=== PATIENT | male | born 1955 | race Caucasian/White ===

== ENCOUNTER 2018-09-14 14:39 | Inpatient (IN) | payer BC ==
[2018-09-14 15:14] LABS: #Eosinphils 0.1 thou/uL (0.0-0.7); #Lymphocytes 1.8 thou/uL (1.20-3.40); #Monocytes 0.5 thou/uL (0.11-0.59); #Neutrophils 4.8 thou/uL (1.40-6.50); %Basophils 0.4 % (0.0-1.0); %Eosinophils 1.6 % (0.0-10.0); %Lymphocytes 24.5 % (21.0-51.0); %Monocytes 7.5 % (0.0-10.0); %Neutrophils 66.1 % (42.0-75.0); Hemoglobin 12.8 g/dL (14.0-18.0); Mean Corpuscular HGB CONC 34.4 g/dL (32.0-36.0); Mean Corpuscular Hemoglobin 30.4 pg (27.0-31.0); Mean Corpuscular Volume 88.4 fL (78.0-98.0); Mean Platelet Volume 7.5 fL (7.4-10.4); Platelet Count 241 thou/uL (130-400); RBC Distribution Width 12.6 % (11.5-14.5); Red Blood Cell (RBC) Count 4.21 mill/uL (4.70-6.10); White Blood Cell (WBC) Count 7.2 thou/uL (4.8-10.8)
[2018-09-14 15:33] LABS: ALT (SGPT) 13 U/L (8-55); AST (SGOT) 15 U/L (5-34); Albumin 4.3 g/dL (3.4-4.8); Alkaline Phosphatase 94 U/L (40-150); Anion Gap 11 mmol/L (10-20); BUN (Urea Nitrogen) 13 mg/dL (8.4-25.7); Bilirubin, Total 0.3 mg/dL (0.2-1.2); Calc. Creatinine Clearance 0 mL/min (70-130); Calcium 9.7 mg/dL (7.8-10.44); Carbon Dioxide 22 mmol/L (23-31); Chloride 106 mmol/L (98-107); Estimated GFR-MDRD Greater than 90; Globulin 3.5 g/dL (2.4-3.5); Glucose 107 mg/dL (80-115); Potassium 4.9 mmol/L (3.5-5.1); Protein, Total 7.8 g/dL (5.8-8.1); Sodium 134 mmol/L (136-145)
--- NOTE | 2018-09-14 15:35 | RAD ---
CHEST 2 VIEWS: Date: 09/14/18 HISTORY: Coughing up blood. COMPARISON: Radiograph from 2017. FINDINGS: There is an abnormal round mass-like density in the right middle/lower lobe. Old left-sided rib fract ures. Cardiac silhouette is within normal limits. IMPRESSION: Round nodule projecting over the right lower lung. Nonemergent CT of chest recommended. CODE T. CODE LN. POS: RUBY
--- NOTE | 2018-09-14 16:48 | CT ---
CHEST CT SCAN WITH IV CONTRAST: 09/14/18 HISTORY: 63-year-old male with history of coughing up bright breast blood since Michael. COMPARISON: Chest PA and lateral, 09/14/18. FINDINGS: Poorly circumscribed somewhat spiculated appearing 2.6 cm diameter mass opacity in the right middle l obe adjacent to the minor fissure. There are some minimal patchy interstitial and alveolar nodular ch anges in the right middle lobe as well. Very minute pleural based stranding in the right lung base. M inimal ground glass opacity changes in the right upper lobe, nonspecific. No mediastinal mass or [place] opathy. No pleural effusion. No pericardial effusion. IMPRESSION: 2.6 cm diameter poorly circumscribed somewhat spiculated appearing mass in the right middle lobe with some additional patchy parenchymal changes In the right middle lobe and right upper lobe, nonspecifi c, possibly some associated pneumonitis. I feel that this is most concerning for a malignancy. Consid er followup PET scan for further assessment. POS: RUBY
[2018-09-14] MEDS ORDERED: ISOVUE-370 76%-LOCM 1 ML ONE (16:50)
[2018-09-14] MEDS ORDERED: Guaifenesin DM 100-10/5 ML UDCUP PO PRN (18:31)
[2018-09-14] MEDS ORDERED: Acetaminophen 325 MG TAB PO PRN (18:31)
[2018-09-14 20:34] VITALS: BMI 40.1
--- NOTE | 2018-09-14 20:55 | HP ---
REASON FOR ADMISSION: Right lung mass, hemoptysis. HISTORY OF PRESENTING ILLNESS: The patient gives history of cough with expectoration of blood from last 3 days. No history of fever. Has some mild shortness of breath, but nothing out of the ordinary states patient. No fever. Patient states he has had prior pneumonias multiple times and has been hospitalized here for the same. He used to smoke one pack a day for the last 25 years and currently is cutting down. No history of weight loss or loss of appetite. PAST MEDICAL AND SURGICAL HISTORY: Hypertension, hypertriglyceridemia, history of pulmonary embolus 5 years back, right total knee replacement, back surgery, left forearm tendon reattachment, left rotator cuff repair, bipolar disorder. CURRENT MEDICATIONS: The patient is on lisinopril 10 mg twice daily, [place] p.r.n. for pain, Advil 800 mg twice daily, Zoloft 300 mg p.o. at bedtime, clonazepam 4 mg p.o. at bedtime, metoprolol extended release 50 mg twice daily. ALLERGIES: NAPROSYN, but he is comfortable taking Advil. PERSONAL HISTORY: Smokes one pack a day and has been doing so for the last 25 years. Drinks on social occasions. Does not abuse alcohol. Please note patient states he has been cutting down on his smoking and is currently down to 2-3 per week. FAMILY HISTORY: Mother at the age of 81 years. Father at the age of 82 years. He has had history of rectal cancer and nasal cancer as well. CODE STATUS: FULL. 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 REVIEW OF SYSTEMS: The following complete review of systems was negative, unless otherwise mentioned in the HPI or below: Constitutional: Weight loss or gain, ability to conduct usual activities. Skin: Rash, itching. Eyes: Double vision, pain. ENT/Mouth: Nose bleeding, neck stiffness, pain, tenderness. Cardiovascular: Palpitations, dyspnea on exertion, orthopnea. Respiratory: Shortness of breath, wheezing, cough, hemoptysis, fever or night sweats. Gastrointestinal: Poor appetite, abdominal pain, heartburn, nausea, vomiting, constipation, or diarrhea. Genitourinary: Urgency, frequency, dysuria, nocturia. Musculoskeletal: Pain, swelling. Neurologic/Psychiatric: Anxiety, depression. Allergy/Immunologic: Skin rash, bleeding tendency. PHYSICAL EXAMINATION: GENERAL: Patient is a 63-year-old male who is currently not in any acute distress. VITAL SIGNS: Blood pressure 176/100, pulse 70 per minute, respiratory rate 18 per minute, temperature 97.9 degrees Fahrenheit, saturating 97% on room air. NECK: Supple, no elevated JVD. EYES: Extraocular muscles intact. Pupils reacting to light. ORAL CAVITY: Mucous membranes are moist. No exudates or congestion. CARDIOVASCULAR SYSTEM: S1, S2 heard. Regular rhythm. RESPIRATORY SYSTEM: Air entry 1+ bilateral. Scattered rhonchi plus no rales. ABDOMEN: Soft, bowel sounds heard. No tenderness, rigidity or guarding. EXTREMITIES: No peripheral edema or calf tenderness. VASCULAR SYSTEM: Peripheral pulses 2+ bilateral, no ischemic ulcerations or gangrene. CENTRAL NERVOUS SYSTEM: No gross focal deficits noted. Patient is alert, awake , oriented well. PSYCHIATRIC SYSTEM: The patient's mood is euthymic. No hallucinations or delusions. LABORATORY DATA AND IMAGING DATA: White count of 7, hemoglobin and hematocrit 12 and 37, platelet count 241 with 66% neutrophils. Electrolytes are stable. Serum bicarbonate 22, BUN 13, creatinine 0.8. Liver enzymes are within normal limits. Albumin is 4.3. CT chest done shows 2.6 cm poorly circumscribed somewhat spiculated appearing mass in the right middle lobe with additional patchy parenchymal changes in the right middle lobe and right upper lobe. This is suspicious for malignancy. CLINICAL IMPRESSION AND PLAN: The patient will be admitted to medical floor for right lung mass with history of heavy smoking in the past. He also has hemoptysis. He will be placed on DuoNeb, short course of IV steroids for 24 hours and will discontinue. He will continue his home medications of Klonopin, lisinopril and Lopressor at a lower dose and sertraline. The patient will likely need either percutaneous biopsy of his lung lesion or bronchoscopic biopsy. Further procedures and plan will be per Pulmonary advice. We will continue to closely monitor him on medical floor. TAMY
[2018-09-14] MEDS: Metoprolol Tartrate 25 MG TAB PO SCH (21:14)
[2018-09-14] MEDS: clonazePAM 1 MG TAB PO SCH (21:15)
[2018-09-14] MEDS: Lisinopril 10 MG TAB PO SCH (21:15)
[2018-09-14] MEDS: Famotidine 20 MG TAB PO SCH (21:15)
[2018-09-14] MEDS: HYDROcodone/Acetaminophen 10/325 mg Tablet PO PRN (21:21)
[2018-09-14] MEDS: guaiFENesin ER 600 MG TAB PO SCH (22:59)
[2018-09-15 04:58] LABS: Anion Gap 14 mmol/L (10-20); BUN (Urea Nitrogen) 13 mg/dL (8.4-25.7); Calc. Creatinine Clearance 175 mL/min (70-130); Calcium 9.5 mg/dL (7.8-10.44); Carbon Dioxide 21 mmol/L (23-31); Chloride 105 mmol/L (98-107); Estimated GFR-MDRD Greater than 90; Glucose 148 mg/dL (80-115); Potassium 4.2 mmol/L (3.5-5.1); Sodium 136 mmol/L (136-145)
[2018-09-15 05:11] LABS: #Lymphocytes 0.7 thou/uL (1.20-3.40); #Monocytes 0.1 thou/uL (0.11-0.59); #Neutrophils 5.3 thou/uL (1.40-6.50); %Basophils 0.3 % (0.0-1.0); %Eosinophils 0.7 % (0.0-10.0); %Lymphocytes 11.5 % (21.0-51.0); %Monocytes 2.2 % (0.0-10.0); %Neutrophils 85.4 % (42.0-75.0); Hemoglobin 12.8 g/dL (14.0-18.0); Mean Corpuscular HGB CONC 32.1 g/dL (32.0-36.0); Mean Corpuscular Hemoglobin 29.4 pg (27.0-31.0); Mean Corpuscular Volume 91.5 fL (78.0-98.0); Mean Platelet Volume 7.7 fL (7.4-10.4); Platelet Count 242 thou/uL (130-400); RBC Distribution Width 12.8 % (11.5-14.5); Red Blood Cell (RBC) Count 4.36 mill/uL (4.70-6.10); White Blood Cell (WBC) Count 6.2 thou/uL (4.8-10.8)
[2018-09-15] MEDS: HYDROcodone/Acetaminophen 10/325 mg Tablet PO PRN ×4 (05:11→21:04)
[2018-09-15] MEDS: guaiFENesin ER 600 MG TAB PO SCH ×4 (05:11→23:05)
[2018-09-15] MEDS ORDERED: Enoxaparin Sodium 40 MG/0.4 ML SYRINGE SC SCH (09:00)
[2018-09-15] MEDS: Lisinopril 10 MG TAB PO SCH ×2 (09:15→21:00)
[2018-09-15] MEDS: Famotidine 20 MG TAB PO SCH ×2 (09:16→21:02)
[2018-09-15] MEDS: Metoprolol Tartrate 25 MG TAB PO SCH ×2 (09:16→21:02)
--- NOTE | 2018-09-15 09:53 | PDOC.PN ---
- Subjective Encounter Start Date: 09/15/18 Encounter Start Time: 09:45 Subjective: a bit anxious, no sob -: no further hemoptysis - Objective Resuscitation Status: Resuscitation Status FULL:Full Resuscitation MAR Reviewed: Yes Vital Signs & Weight: Vital Signs (12 hours) Temp Pulse Resp BP BP Pulse Ox 09/15/18 09:15 114/55 L 09/15/18 08:00 98.4 F 89 16 114/55 L 94 L 09/15/18 07:55 96 09/15/18 07:07 75 16 94 L 09/14/18 23:31 71 16 97 09/14/18 22:03 67 16 97 Weight Weight 296 lb Result Diagrams: 09/15/18 04:17 09/15/18 04:17 Phys Exam - Physical Examination HEENT: PERRLA, moist MMs Neck: no JVD, supple Respiratory: no wheezing, no rales Cardiovascular: RRR, no significant murmur Gastrointestinal: soft, non-tender, positive bowel sounds Musculoskeletal: no edema, pulses present Neurological: non-focal, moves all 4 limbs Psychiatric: normal affect, A&O x 3 Dx/Plan (1) Mass of middle lobe of right lung Code(s): R91.8 - OTHER NONSPECIFIC ABNORMAL FINDING OF LUNG FIELD Status: Acute (2) COPD (chronic obstructive pulmonary disease) Status: Chronic Qualifiers: COPD type: chronic bronchitis Chronic bronchitis type: unspecified Qualified Code(s): J42 - Unspecified chronic bronchitis (3) Hemoptysis Code(s): R04.2 - HEMOPTYSIS Status: Acute (4) Bipolar disorder Code(s): F31.9 - BIPOLAR DISORDER, UNSPECIFIED Status: Chronic (5) Tobacco abuse Code(s): Z72.0 - TOBACCO USE Status: Chronic (6) Hypertension Code(s): I10 - ESSENTIAL (PRIMARY) HYPERTENSION Status: Chronic Qualifiers: Hypertension type: essential hypertension Qualified Code(s): I10 - Essential (primary) hypertension (7) Morbid obesity with BMI of 40.0-44.9, adult Code(s): E66.01 - MORBID (SEVERE) OBESITY DUE TO EXCESS CALORIES; Z68.41 - BODY MASS INDEX (BMI) 40.0-44.9, ADULT Status: Chronic - Plan d/w , likely bronchoscopy in am, he will d/w patient -: dc steroids, on levaquin, may dc in am -: duonebs -: continue lopressor, lisinopril, zoloft high dose and clonazepam -: will f/u * . Review of Systems - Medications/Allergies Allergies/Adverse Reactions: Allergies Allergy/AdvReac Type Severity Reaction Status Date / Time naproxen [From Naprosyn] Allergy Verified 09/14/18 20:37 Medications: Current Medications Acetaminophen (Tylenol) 650 mg PO Q4H PRN PRN Reason: Headache/Fever/Mild Pain (1-3) Hydrocodone Bitart/Acetaminophen ([place] 10/325) 1 tab PO Q4H PRN PRN Reason: Moderate Pain (4-6) Last Admin: 09/15/18 09:20 Dose: 1 tab Albuterol/Ipratropium (Duoneb) 3 ml NEB [id number] [facility] Last Admin: 09/15/18 07:07 Dose: 3 ml Clonazepam (Klonopin) 2 mg PO HS [facility] Last Admin: 09/14/18 21:15 Dose: 2 mg Enoxaparin Sodium (Lovenox) 40 mg SC 0900 [facility] Last Admin: 09/15/18 09:16 Dose: 40 mg Famotidine (Pepcid) 20 mg PO BID [facility] Last Admin: 09/15/18 09:16 Dose: 20 mg Guaifenesin (Mucinex) 600 mg PO Q6HR [facility] Last Admin: 09/15/18 05:11 Dose: 600 mg Guaifenesin/Dextromethorphan (Robitussin Dm) 15 ml PO Q4H PRN PRN Reason: Cough Levofloxacin 500 mg/ Device 100 mls @ 100 mls/hr IVPB Q24HR [facility] Last Admin: 09/14/18 20:57 Dose: 100 mls Lisinopril (Zestril) 10 mg PO BID [facility] Last Admin: 09/15/18 09:15 Dose: 10 mg Metoprolol Tartrate (Lopressor) 25 mg PO BID [facility] Last Admin: 09/15/18 09:16 Dose: 25 mg Buprenorphine Patch 0 each TOP Q7D [facility] Sertraline HCl (Zoloft) 300 mg PO HS [facility] Last Admin: 09/14/18 21:14 Dose: 300 mg
[2018-09-15] MEDS ORDERED: ALPRAZolam 1 MG TAB PO PRN (10:12)
[2018-09-15] MEDS ORDERED: ALPRAZolam 0.5 MG TAB PO PRN (11:00)
[2018-09-15] MEDS ORDERED: BUPRENORPHINE PATCH TOP SCH (21:00)
[2018-09-15] MEDS: clonazePAM 1 MG TAB PO SCH (21:02)
--- NOTE | 2018-09-15 21:42 | CON ---
DATE OF CONSULTATION: 09/15/2018 SERVICE: Pulmonary Medicine. REASON FOR CONSULTATION: Hemoptysis. HISTORY OF PRESENT ILLNESS: The patient is a 63-year-old white male with past medical history significant for excessive tobacco abuse, and marijuana abuse when he was in his 30s. Ultimately, he has been making an attempt to quitting both these habits. He actually discontinued marijuana when he was 34 years old. Either way, he was in his usual state of health when he started having hemoptysis. This was not preceded by any infectious prodrome, fevers, chills, nausea, vomiting, cough, sputum production, or congestion in the face. His weight has been stable. He denies having any significant night sweats. He presented to the emergency department. He coughed up about 2-3 Vanessa cups full of blood. It was fresh blood initially, but then started darken up through time. He has never had an event like this occur. PAST MEDICAL HISTORY: 1. History of pulmonary embolism. 2. Hypertension. 3. Dyslipidemia. 4. Bipolar disorder. PAST SURGICAL HISTORY: 1. Left rotator cuff repair. 2. Left forearm tendon repair. 3. Back surgery. 4. Right total knee replacement. ALLERGIES: NAPROSYN. MEDICATIONS: List of his inpatient medications was reviewed. No specific updates were made at this time. FAMILY HISTORY: Noncontributory. SOCIAL HISTORY: He smokes half to a pack of cigarettes on a daily basis. He has done so for over 30 years. He had a remote history of very significant marijuana use. He denies any alcohol or illicit drugs. He has no exposure to chemicals, dust, asbestos or tuberculosis otherwise. REVIEW OF SYSTEMS: General, head, ears, eyes, nose, throat, cardiovascular, respiratory, GI, , musculoskeletal, neurologic and skin is negative except as mentioned in the HPI. PHYSICAL EXAMINATION: VITAL SIGNS: Afebrile, pulse 99, blood pressure 157/94, respirations 16, saturation 94% on room air. GENERAL: The patient is awake and alert, in no apparent distress. LUNGS: Excellent air entry is present. There is no prolonged expiratory phase or wheezing present. HEART: Normal rate, regular. ABDOMEN: Soft, nontender, nondistended. Bowel sounds are positive. MUSCULOSKELETAL: No cyanosis or clubbing. There is no pitting in the bilateral lower extremities. NEUROLOGIC: Grossly nonfocal. LABORATORY DATA: WBC 6.2, hemoglobin 12.8, platelets 242,000. Basic metabolic profile is essentially unremarkable. Liver function studies are also normal. Hemoglobin is stable. The streptococcus is growing in 1 of 2 blood cultures. Respiratory cultures negative to date. Of note, there are very few white blood cells present. IMAGIN. Chest x-ray demonstrates right mid lung zone pulmonary nodule/mass: 2. CT of the chest demonstrates right middle lobe pulmonary nodule. It has a spiculated appearance and is pressed up against the fissure between the right middle lobe, and the right lower lobe. There is a right anterior mediastinal lymph node identified. ASSESSMENT: 1. Pulmonary mass. 2. Massive hemoptysis, resolved. 3. History of pulmonary embolism. DISCUSSION AND PLAN: The patient will undergo a bronchoscopy tomorrow morning. Hopefully, we will be able to identify a lesion and takes some true biopsies of it. If not, random biopsies will be taken from the airway of interest. We will wait for the results. He does appreciate there is possibility of a false negative. If that were the case, a transcutaneous biopsy would be required. Pulmonary Critical Care will continue to follow along. 70 minutes have been devoted to this patient in various activities. I personally reviewed all imaging studies and laboratory data noted within this document. For fifty percent of this time, I was interacting with the patient at the bedside or coordinating care with the care team. For the remainder of the time I was immediately available to the patient in the hospital unit. TAMY
[2018-09-16] MEDS: guaiFENesin ER 600 MG TAB PO SCH ×2 (05:30→15:19)
[2018-09-16] MEDS ORDERED: Morphine 2 MG/ML SYRINGE SLOW IVP SCH (08:30)
[2018-09-16 08:37] VITALS: TEMP 97.2
--- NOTE | 2018-09-16 10:08 | PDOC.PN ---
- Subjective Encounter Start Date: 09/16/18 Encounter Start Time: 09:45 Subjective: no sob -: family at bedside -: says he is less anxious this morning - Objective Resuscitation Status: Resuscitation Status FULL:Full Resuscitation MAR Reviewed: Yes Vital Signs & Weight: Vital Signs (12 hours) Temp Pulse Resp BP Pulse Ox 09/16/18 08:00 97.2 F L 71 16 112/62 93 L 09/16/18 06:35 71 16 94 L 09/16/18 01:10 76 18 96 Weight Weight 296 lb I&O: 09/15/18 09/16/18 09/17/18 06:59 06:59 06:59 Intake Total 2450 Balance 2450 Result Diagrams: 09/15/18 04:17 09/15/18 04:17 Phys Exam - Physical Examination HEENT: PERRLA, moist MMs Neck: no JVD, supple Respiratory: no wheezing, no rales Cardiovascular: RRR, no significant murmur Gastrointestinal: soft, non-tender, positive bowel sounds Musculoskeletal: no edema, pulses present Neurological: non-focal, moves all 4 limbs Psychiatric: normal affect, A&O x 3 Dx/Plan (1) Mass of middle lobe of right lung Code(s): R91.8 - OTHER NONSPECIFIC ABNORMAL FINDING OF LUNG FIELD Status: Acute (2) COPD (chronic obstructive pulmonary disease) Status: Chronic Qualifiers: COPD type: chronic bronchitis Chronic bronchitis type: unspecified Qualified Code(s): J42 - Unspecified chronic bronchitis (3) Hemoptysis Code(s): R04.2 - HEMOPTYSIS Status: Acute (4) Bipolar disorder Code(s): F31.9 - BIPOLAR DISORDER, UNSPECIFIED Status: Chronic (5) Tobacco abuse Code(s): Z72.0 - TOBACCO USE Status: Chronic (6) Hypertension Code(s): I10 - ESSENTIAL (PRIMARY) HYPERTENSION Status: Chronic Qualifiers: Hypertension type: essential hypertension Qualified Code(s): I10 - Essential (primary) hypertension (7) Morbid obesity with BMI of 40.0-44.9, adult Code(s): E66.01 - MORBID (SEVERE) OBESITY DUE TO EXCESS CALORIES; Z68.41 - BODY MASS INDEX (BMI) 40.0-44.9, ADULT Status: Chronic - Plan for bronchoscopy today -: likely blood cs 1/2 strep is contamination? -: is on levaquin, nebs -: dc plan per 's adv * . Review of Systems - Medications/Allergies Allergies/Adverse Reactions: Allergies Allergy/AdvReac Type Severity Reaction Status Date / Time naproxen [From Naprosyn] Allergy Verified 09/14/18 20:37 Medications: Current Medications Acetaminophen (Tylenol) 650 mg PO Q4H PRN PRN Reason: Headache/Fever/Mild Pain (1-3) Hydrocodone Bitart/Acetaminophen ([place] 10/325) 1 tab PO Q4H PRN PRN Reason: Moderate Pain (4-6) Last Admin: 09/15/18 21:04 Dose: 1 tab Albuterol/Ipratropium (Duoneb) 3 ml NEB [id number] [facility] Last Admin: 09/16/18 06:35 Dose: 3 ml Alprazolam (Xanax) 1 mg PO QIDPRN PRN PRN Reason: Anxiety Last Admin: 09/15/18 10:55 Dose: 1 mg Clonazepam (Klonopin) 2 mg PO HS [facility] Last Admin: 09/15/18 21:02 Dose: 2 mg Famotidine (Pepcid) 20 mg PO BID [facility] Last Admin: 09/15/18 21:02 Dose: 20 mg Guaifenesin (Mucinex) 600 mg PO Q6HR [facility] Last Admin: 09/16/18 05:30 Dose: Not Given Levofloxacin 500 mg/ Device 100 mls @ 100 mls/hr IVPB Q24HR [facility] Last Admin: 09/15/18 21:00 Dose: 100 mls Lisinopril (Zestril) 10 mg PO BID [facility] Last Admin: 09/15/18 21:00 Dose: 10 mg Metoprolol Tartrate (Lopressor) 25 mg PO BID [facility] Last Admin: 09/15/18 21:02 Dose: 25 mg Morphine Sulfate (Morphine) 2 mg SLOW IVP 0830 [facility] Stop: 09/16/18 11:00 Last Admin: 09/16/18 08:42 Dose: 2 mg Buprenorphine Patch 0 each TOP Q7D [facility] Sertraline HCl (Zoloft) 300 mg PO HS [facility] Last Admin: 09/15/18 21:02 Dose: 300 mg
[2018-09-16] MEDS: Metoprolol Tartrate 25 MG TAB PO SCH (11:17)
--- NOTE | 2018-09-16 11:57 | PRG ---
DATE OF SERVICE: 09/16/2018 SERVICE: Pulmonary Medicine. INTERVAL HISTORY: The patient is doing fine from a respiratory standpoint. Denies any current fever s, chills, shortness of breath or chest discomfort. He is breathing comfortably. There have been no additional episodes of hemoptysis. PHYSICAL EXAMINATION: VITAL SIGNS: Afebrile, pulse 71, blood pressure 112/62, respirations 16, saturation 93% on room air. GENERAL: The patient is awake and alert, in no apparent distress. LUNGS: Excellent air entry. There is no prolonged expiratory phase or wheezing present. HEENT: Normocephalic, atraumatic. Sclerae are white. Conjunctivae are pink. Oral mucosa is moist without lesions. HEART: Normal rate, regular. ABDOMEN: Soft, nontender, nondistended. Bowel sounds are positive. MUSCULOSKELETAL: No cyanosis or clubbing. No pitting in the bilateral lower extremities. NEUROLOGIC: Grossly nonfocal. ASSESSMENT: 1. Pulmonary mass. 2. Massive hemoptysis, resolved. 3. History of pulmonary embolism. DISCUSSION AND PLAN: We will proceed with bronchoscopy today. After the bronchoscopy, he will be st able for transition out of the hospital. I have him follow up with me in clinic later this week, so we can discuss the results of this study and determine whether or not additional testing is warranted in the future. Pulmonary Critical Care will continue following.
[2018-09-16] MEDS ORDERED: Fentanyl 100 MCG/2 ML VIAL ONE (12:58)
[2018-09-16] MEDS ORDERED: EPINEPHrine 1 MG/10 ML Abboject SYRINGE ONE (13:10)
[2018-09-16] MEDS: HYDROcodone/Acetaminophen 10/325 mg Tablet PO PRN (15:16)
[2018-09-16] MEDS: Famotidine 20 MG TAB PO SCH (15:18)
[2018-09-16 15:19] VITALS: BP 135/76
[2018-09-16] MEDS: Lisinopril 10 MG TAB PO SCH (15:19)
--- NOTE | 2018-09-16 19:22 | OP ---
DATE OF SERVICE: 09/16/2018 SERVICE: Pulmonary Medicine. PROCEDURES: Fiberoptic bronchoscopy with: 1. Visual airway inspection. 2. Endobronchial brush from the right middle lobe. 3. Bronchoalveolar lavage from the right middle lobe. 4. Transbronchial biopsies of the right middle lobe. PREPROCEDURE DIAGNOSES: 1. Massive hemoptysis. 2. Pulmonary mass. POSTPROCEDURE DIAGNOSES: 1. Massive hemoptysis. 2. Pulmonary mass. PROCEDURE ELECTRICIAN POWERHOUSE: Navneet Weinstein MD MEDICATIONS USED: For list of medications use, please refer to anesthesia documentation. PREANESTHESIA ASSESSMENT: H and P had been performed. The patient's medications and allergies were reviewed. Informed consent was obtained after discussing risks, benefits, and rationale for performi ng the procedure as well as alternative options. DESCRIPTION OF PROCEDURE: A timeout was performed identifying correct patient and procedure with nam e and date of . A diagnostic fiberoptic bronchoscope was introduced through the existing 8.5 en dotracheal tube. The bronchoscope was advanced into the trachea where a tracheobronchial tree inspec tion was carried out with clear identification of the right upper lobe, right middle lobe, right lowe r lobe, left upper lobe, lingula, and left lower lobe. Anatomy was normal to the segmental level. T here was some dried blood coming from the right middle lobe, lateral segment. Secretions were minima l. A bronchoalveolar lavage was obtained from the lateral segment of the right middle lobe. Endobro nchial brushings, and transbronchial biopsies were obtained from the right middle lobe under fluorosc opic guidance. Hemostasis was verified and the bronchoscope was subsequently removed from the patien t. Post-procedure fluoroscopy did not demonstrate a pneumothorax. FINDINGS: 1. Secretions were minimal. 2. Dried blood was present in the lateral segment of the right lower lobe. 3. No discrete endobronchial disease was identified. SPECIMENS OBTAINED: Pathology on brush, BAL, and transbronchial biopsies. COMPLICATIONS: None. ESTIMATED BLOOD LOSS: 2 mL FLUOROSCOPY TIME: 2 minutes 31 seconds. DISPOSITION: The patient will be transitioned to the postanesthesia care unit. When he meets criter ia, he will be transitioned back to his hospital room. He is a candidate for transition home today.
--- NOTE | 2018-09-17 00:06 | DIS ---
DATE OF ADMISSION: 09/14/2018 DATE OF DISCHARGE: 09/16/2018 DISCHARGE DISPOSITION: To home. PRIMARY DISCHARGE DIAGNOSES: Lung mass, status post bronchoscopy with biopsy; hemoptysis, resolved. SECONDARY DISCHARGE DIAGNOSES: Chronic obstructive pulmonary disease, tobacco abuse, bipolar disorde r, hypertension, morbid obesity. PROCEDURES DONE DURING HOSPITALIZATION: CT chest done on the day of admission showed 2.6 cm poorly c ircumscribed spiculated mass in the right middle lobe with additional patchy parenchymal changes in t he right middle lobe and right upper lobe, had bronchoscopy with biopsies done on 09/16/[address] Jo Ann freed, 1 of 2 blood cultures grew alpha-hemolytic streptococcus. White count of 6, H&H 12 and 39, p latelet count 242. DISCHARGE MEDICATIONS: Buprenorphine patch once weekly, clonazepam 4 mg p.o. at bedtime, [place] p.r.n . for pain, lisinopril 10 mg twice daily, Toprol-XL as before, sertraline 300 mg p.o. at bedtime, Lev aquin 500 mg p.o. daily for another 4 days. ALLERGIES: NAPROSYN. INPATIENT CONSULTS: Dr. Weinstein for Pulmonology. DISCHARGE PLAN: Patient to follow up with Dr. Weinstein as advised and primary care physician in [address] [place] [address] BRIEF COURSE DURING HOSPITALIZATION: Patient initially came to ER with complaints of cough with hemo ptysis. Initial x-ray and CAT scan done was suspicious for right upper lobe/middle lobe mass. He menon s had consultation with Dr. Weinstein. The patient has had bronchoscopy done with biopsies taken. His hemoptysis has resolved. One of 2 cultures incidentally grew alpha-hemolytic strep. He is on Levaq uin and will need to continue for another 4 days. The patient is otherwise hemodynamically stable an d will be discharged home. The patient will follow up with Dr. Weinstein in a week to discuss the biop sy results and the plan. He has been cleared by Dr. Weinstein for discharge. Please see a face-to-fac e documentation [facility].
== END 2018-09-16 17:10 | disposition home or self-care (01) | DRG 167 ==
LOC: ERS 14:39 → ONC 19:49
PROVIDERS: ADMIT Internal Medicine; ATTEND Internal Medicine
PROC: 0BBD8ZX Excision of Right Middle Lung Lobe, Via Natural or Artificial Opening Endoscopic, Diagnostic (ICD-10-PCS; principal; 2018-09-16)
PROC: 0B9D8ZX Drainage of Right Middle Lung Lobe, Via Natural or Artificial Opening Endoscopic, Diagnostic (ICD-10-PCS; 2018-09-16)
PROC: 0BD58ZX Extraction of Right Middle Lobe Bronchus, Via Natural or Artificial Opening Endoscopic, Diagnostic (ICD-10-PCS; 2018-09-16)
DX: R91.8 Other nonspecific abnormal finding of lung field (principal); R04.2 Hemoptysis; Z68.41 Body mass index [BMI] 40.0-44.9, adult; J44.9 Chronic obstructive pulmonary disease, unspecified; F31.9 Bipolar disorder, unspecified; F17.210 Nicotine dependence, cigarettes, uncomplicated; I10 Essential (primary) hypertension; E66.01 Morbid (severe) obesity due to excess calories; Z86.711 Personal history of pulmonary embolism; B95.4 Other streptococcus as the cause of diseases classified elsewhere; F12.10 Cannabis abuse, uncomplicated; R91.1 Solitary pulmonary nodule
CPT/HCPCS: 36415; 71046; 71260; 80048; 80053; 85025; 87040; 87070; 87149; 87205; 88112; 88305; 88312; 88313; 93005; 94640; 99406; J0171; J1650; J1956; J2270; J2920; J3010; J7620

== ENCOUNTER 2018-10-03 07:31 | Outpatient (CLI) | payer BC ==
--- NOTE | 2018-10-03 09:51 | PET ---
PET CT: HISTORY: 63-year-old male with solitary pulmonary nodule. Bronchial brushings were negative for malignancy. TECHNIQUE: PET scanning with CT attenuation correction was performed from the base of the brain through the prox imal thighs following the intravenous administration of 10.5 mCi F18-FDG in the left antecubital juan a. FINDINGS: Correlation is made with CT chest dated 09/14/18. No abnormal FDG localization is seen in the right lung nodule noted on the CT scan. This demonstrates a SUV of 2. No abhi hypermetabolism is seen in the neck, chest, axilla, abdomen, or pelvis. No hypermetabolic pu lmonary nodules, liver, adrenal, or skeletal lesions are seen. There is physiologic activity in the GI and tracts, and the visualized portions of the brain. The CT scan used for attenuation correction demonstrates no evidence of pleural effusions or ascites. There is sigmoid diverticulosis and fatty infiltration of the liver. IMPRESSION: No abnormal FDG localization in the right lung nodule. A follow-up CT scan is recommended in 3 months . POS: RUBY
== END 2018-10-03 07:32 | disposition home or self-care (01) ==
LOC: PET 07:31
PROVIDERS: ATTEND Internal Medicine
DX: R91.1 Solitary pulmonary nodule (principal)
CPT/HCPCS: 78815; A9552

== ENCOUNTER 2019-04-07 01:59 | Outpatient (CLI) | payer OTHER ==
--- NOTE | 2019-04-07 17:36 | EKG ---
Test Reason : Blood Pressure : / mmHG Vent. Rate : 062 BPM Atrial Rate : 062 BPM P-R Int : 224 ms QRS Dur : 096 ms QT Int : 382 ms P-R-T Axes : 037 047 062 degrees QTc Int : 387 ms Sinus rhythm with 1st degree A-V block Otherwise normal ECG When compared with ECG of 14-SEP-2018 17:35, Borderline criteria for Inferior infarct are no longer Present Confirmed by ANDRZEJ MUNOZ, [place] ([id number]) on 04/07/2019 5:35:56 PM Referred By: SYEDA Confirmed By:DR. Andrew DONNELLY MD
== END 2019-04-07 02:00 | disposition home or self-care (01) ==
LOC: LABBT 01:59
PROVIDERS: ATTEND Orthopaedic Surgery
DX: Z01.810 Encounter for preprocedural cardiovascular examination (principal); M17.12 Unilateral primary osteoarthritis, left knee
CPT/HCPCS: 93005; 93010

== ENCOUNTER 2019-04-07 09:00 | Inpatient (IN) | payer OTHER ==
[2019-04-07 09:36] VITALS: BMI 40.6
[2019-04-07 10:41] LABS: Hemoglobin 14.3 g/dL (14.0-18.0); Mean Corpuscular Hemoglobin 30.6 pg (27.0-31.0); Mean Corpuscular Volume 87.4 fL (78.0-98.0); Mean Platelet Volume 8.1 fL (7.4-10.4); Platelet Count 221 thou/uL (130-400); Red Blood Cell (RBC) Count 4.69 mill/uL (4.70-6.10); White Blood Cell (WBC) Count 5.3 thou/uL (4.8-10.8)
[2019-04-07 10:48] LABS: PTT 34.3 SEC (22.9-36.1); Prothrombin Time 12.9 SEC (12.0-14.7)
[2019-04-07 11:15] LABS: Anion Gap 15 mmol/L (10-20); BUN (Urea Nitrogen) 17 mg/dL (8.4-25.7); Calc. Creatinine Clearance 0 mL/min (70-130); Calcium 10.8 mg/dL (7.8-10.44); Carbon Dioxide 26 mmol/L (23-31); Chloride 103 mmol/L (98-107); Estimated GFR-MDRD Greater than 90; Glucose 107 mg/dL (80-115); Potassium 4.6 mmol/L (3.5-5.1); Sodium 139 mmol/L (136-145)
[2019-04-07 12:08] LABS: Bacteria/HPF None Seen HPF (None Seen); Crystals/HPF 1+ AMORPH URATES HPF (Negative); Hyaline Casts/LPF NONE SEEN LPF (0-3 Hyaline); RBC/HPF 0-3 HPF (0-3); Squamous Epithelial 0-3 HPF (0-3); WBC/HPF 0-3 HPF (0-3)
[2019-04-14] MEDS ORDERED: CEFAZOLIN 2 GM in Premix Bag 1 BAG IVPB SCH (11:45)
[2019-04-14] MEDS ORDERED: Midazolam HCl 2 mg/2 ml Vial ONE (12:15)
[2019-04-14] MEDS ORDERED: Fentanyl 100 MCG/2 ML VIAL ONE ×6 (12:15→16:26)
[2019-04-14] MEDS ORDERED: Ropivacaine HCl/PF 250 ML in Premix Bag 1 BAG NERVE BLCK SCH (13:07)
[2019-04-14] MEDS ORDERED: Zolpidem Tartrate 5 MG TAB PO PRN (13:07)
[2019-04-14] MEDS ORDERED: traMADol HCl 50 MG TAB PO PRN (13:07)
[2019-04-14] MEDS ORDERED: HYDROcodone/Acetaminophen 10/325 mg Tablet PO PRN (13:07)
[2019-04-14] MEDS ORDERED: Promethazine HCl 25 MG/ML VIAL IM PRN ×2 (13:07→15:45)
[2019-04-14] MEDS ORDERED: Ondansetron PF 4 MG/2 ML Vial IVP PRN (13:07)
[2019-04-14] MEDS ORDERED: HYDROmorphone 2 MG/ML VIAL ONE (15:39)
[2019-04-14] MEDS ORDERED: Morphine Sulfate 2 MG/ML SYRINGE SLOW IVP PRN (15:45)
[2019-04-14] MEDS ORDERED: Ondansetron HCl/PF 4 MG/2 ML Vial IVP PRN (15:45)
[2019-04-14] MEDS ORDERED: Ketorolac Tromethamine 30 MG/ML VIAL IVP PRN (15:45)
[2019-04-14] MEDS ORDERED: Meperidine HCl/PF 25 MG/ML VIAL SLOW IVP PRN (15:45)
[2019-04-14] MEDS ORDERED: Morphine 4 MG/ML VIAL ONE (15:51)
[2019-04-14] MEDS ORDERED: Acetaminophen 500 MG TAB PO PRN ×2 (16:37→16:48)
[2019-04-14] MEDS ORDERED: Morphine 4 MG/ML VIAL SLOW IVP PRN ×2 (16:37→16:53)
[2019-04-14] MEDS ORDERED: Sodium Chloride 0.9% 1,000 ML IV SCH (16:37)
[2019-04-14] MEDS ORDERED: Vancomycin HCl 1.5 GM in Sodium Chloride 0.9% 250 ML 300 ML IVPB SCH (16:37)
[2019-04-14] MEDS ORDERED: Morphine 2 MG/ML SYRINGE SLOW IVP PRN (16:52)
--- NOTE | 2019-04-14 17:24 | RAD ---
EXAM: 2 views of the left knee HISTORY: Knee pain COMPARISON: None FINDINGS: The patient is status post left knee arthroplasty without perihardware lucency or fracture. Air in the soft tissues and overlying bartolo are from recent surgery. IMPRESSION: Status post left knee arthroplasty without evidence of complication.
[2019-04-14] MEDS: Ketorolac Tromethamine 30 MG/ML VIAL IVP SCH ×2 (17:29→23:06)
[2019-04-14] MEDS: Sodium Chloride 0.9% 1,000 ML IV SCH (17:41)
[2019-04-14] MEDS ORDERED: HYDROcodone/Acetaminophen 10/325 mg Tablet PO SCH (18:00)
[2019-04-14] MEDS: HYDROcodone/Acetaminophen 10/325 mg Tablet PO PRN ×2 (18:30→23:10)
[2019-04-14] MEDS: Lisinopril 20 MG TAB PO SCH (20:52)
[2019-04-14] MEDS: Cyclobenzaprine 10 MG TAB PO SCH (20:52)
[2019-04-14] MEDS: Aspirin 81 mg Enteric Coated Tablet PO SCH (20:53)
[2019-04-14] MEDS ORDERED: Non-Formulary Item 1 EACH (Lisinopril [Lisinopril] 20 MG) PO SCH (21:00)
[2019-04-14] MEDS ORDERED: CLONAZEPAM 4 MG PO SCH (21:00)
[2019-04-14] MEDS ORDERED: Aspirin 81 mg Enteric Coated Tablet PO SCH (21:00)
[2019-04-14] MEDS ORDERED: Cyclobenzaprine 10 MG TAB PO SCH (21:00)
--- NOTE | 2019-04-14 22:35 | OP ---
DATE OF PROCEDURE: 04/14/2019 PREOPERATIVE DIAGNOSIS: Left knee osteoarthritis. POSTOPERATIVE DIAGNOSIS: Left knee osteoarthritis. PROCEDURE PERFORMED: Left total knee arthroplasty. ANESTHESIA: General in addition to femoral and sciatic nerve blocks. STERILIZATION TECH: Newton Lechuga PA-C TOURNIQUET TIME: 85 minutes at 300 mmHg. IMPLANTS: DePuy system was used with a size 5 femur, size 5 tibia, 8 mm poly insert, and 38 mm all poly patellar button. The Oliver Simplex methylmethacrylate cement was also used. DRAINS: None. SPECIMEN: None. OUTCOME: Stable total knee. INDICATIONS: Mr. Rodriguez is a 63-year-old gentleman who is now status post right total knee arthroplasty and doing very well from the surgery. He is now having increasing pain in the left knee with iizo-yc-djed degenerative changes of the medial compartment. After discussion with the patient including risks and benefits, we have decided to proceed with left total knee arthroplasty. The patient also has a history of DVT with PE and as such after discussion with his egg crater, we decided to premedicate the patient with Eliquis for 2 weeks prior to surgery with plans to treat him for 3 months of Eliquis postop. Again, informed consent has been obtained. DESCRIPTION OF PROCEDURE: The patient was brought to the operating room and a time-out performed followed by induction of general anesthesia. Next, the patient was positioned supine and then a sterile prep and drape performed to the left lower extremity. Next, the limb was exsanguinated with Esmarch bandage, tourniquet inflated to 300 mmHg. A midline anterior knee incision was made followed by a medial parapatellar arthrotomy. The patella was inverted and the knee flexed. Next, the remnants of the prepatellar fat pad, menisci, and ACL were excised. This was followed by utilization of the step drill to obtain a starting point at the distal femur, followed by intramedullary jig placement. A distal cut was performed and then the femur was sized to a size 5. The four-in-one cutting block was pinned in place and then the final cuts performed. Osteophytes were then resected. Next, attention was placed at the tibia. Again using intramedullary alignment, the proximal tibial cut was performed. The PCL was left intact. Osteophytes were excised from around the margin of the tibia and then trialing to a size 5 showed good fit. Next, the reamer and cruciform punch were utilized to further prepare the proximal tibia. The trial 5 insert was left in place. At this point, there was found to be excessive tightness both in flexion and extension. As such, an additional 4 mm was taken off the proximal tibia. After further preparation with the reamer and punch, the trial was left in place and the 8 mm poly insert provided excellent fit and fill on both extension and flexion. Next, the patella was resurfaced freehand with PEG holes drilled to accept the final component. Cement was mixed and then the tibial cemented in place followed by the femoral component. Excess cement removed and then the 8 mm poly insert was introduced into the knee and the knee brought into full extension and compression. The patella was then cemented in place and held with a clamp. At the completion of this, excess cement was all removed and then the knee again irrigated with Pulsavac, a total of 3 L used during the course of the case. At the completion of this, wound closure performed with #2 Vicryl for the quadriceps mechanism, 2-0 Vicryl subcutaneously and bartolo for the skin. Xeroform gauze and Dionte wrap dressing were applied to the knee and then the patient was transferred to recovery room in stable condition. There were no complications. The patient tolerated the procedure well. Job ID: [id number]
[2019-04-14] MEDS: Vancomycin HCl 1.5 GM in Sodium Chloride 0.9% 250 ML 300 ML IVPB SCH (23:02)
[2019-04-15] MEDS: Sodium Chloride 0.9% 1,000 ML IV SCH ×3 (04:22→23:20)
[2019-04-15 05:31] LABS: Hemoglobin 11.8 g/dL (14.0-18.0); Mean Corpuscular HGB CONC 34.4 g/dL (32.0-36.0); Mean Corpuscular Hemoglobin 30.7 pg (27.0-31.0); Mean Corpuscular Volume 89.2 fL (78.0-98.0); Mean Platelet Volume 8.2 fL (7.4-10.4); Platelet Count 176 thou/uL (130-400); RBC Distribution Width 13.1 % (11.5-14.5); Red Blood Cell (RBC) Count 3.84 mill/uL (4.70-6.10); White Blood Cell (WBC) Count 9.8 thou/uL (4.8-10.8)
[2019-04-15] MEDS: Ketorolac Tromethamine 30 MG/ML VIAL IVP SCH ×4 (05:37→23:34)
[2019-04-15] MEDS: HYDROcodone/Acetaminophen 10/325 mg Tablet PO PRN ×4 (06:45→23:39)
[2019-04-15] MEDS: Aspirin 81 mg Enteric Coated Tablet PO SCH ×2 (08:35→21:05)
[2019-04-15] MEDS: Lisinopril 20 MG TAB PO SCH ×2 (08:36→08:45)
[2019-04-15] MEDS: Famotidine 20 MG TAB PO SCH (08:41)
[2019-04-15] MEDS ORDERED: Famotidine 20 MG TAB PO SCH (09:00)
[2019-04-15] MEDS: Vancomycin HCl 1.5 GM in Sodium Chloride 0.9% 250 ML 300 ML IVPB SCH ×2 (13:06→23:35)
--- NOTE | 2019-04-15 15:33 | CON ---
DATE OF CONSULTATION: 04/15/2019 PRIMARY CARE PROVIDER: William Christine MD CHIEF COMPLAINT: Management of medical comorbidities. HISTORY OF PRESENT ILLNESS: Mr. Rodriguez is a pleasant 63-year-old gentleman, who was seen at [facility] on April 15, 2019. Yesterday, he underwent left total knee arthroplasty. Hospitalist Service has been consulted for management of medical comorbidities. He denies any chest pain or shortness of breath. He denies any fevers or chills. He denies any nausea or vomiting. He reports that left knee pain is manageable with medications. REVIEW OF SYSTEMS: All other systems reviewed and found to be negative. PAST MEDICAL HISTORY: Hypertension, dyslipidemia, and pulmonary embolism. PAST SURGICAL HISTORY: Right total knee replacement, back surgery, left forearm tendon reattachment, left rotator cuff repair, and left total knee arthroplasty. PSYCHIATRIC HISTORY: Bipolar disorder. SOCIAL HISTORY: The patient denies tobacco use, alcohol use, or recreational drug use. FAMILY HISTORY: Rectal cancer and nasal cancer in his father. ALLERGIES: NAPROXEN. HOME MEDICATIONS: 1. Ramona 10/325 mg every 6 hours. 2. Buprenorphine patch every week. 3. Apixaban 2.5 mg daily. 4. Clonazepam 4 mg at bedtime. 5. Flexeril 10 mg at bedtime. 6. Famotidine 20 mg daily. 7. Ibuprofen 800 mg 4 times a day. 8. Lisinopril 20 mg 2 times a day. 9. Toprol-XL 100 mg 2 times a day. 10. Sertraline 300 mg at bedtime. PHYSICAL EXAMINATION: GENERAL: Mr. Rodriguez is awake and alert, not in acute distress. VITAL SIGNS: Blood pressure is 101/65, pulse 80, respiratory rate 18, and oxygen saturation 92% on room air. He is afebrile. He is morbidly obese, with a BMI of 40.7. EYES: No scleral icterus, no conjunctival pallor. ENT: Moist mucosal membranes. No oropharyngeal erythema or exudates. NECK: Supple, nontender, trachea is midline. RESPIRATORY: Accessory muscles of breathing are not active. Chest wall movements are symmetric bilaterally. LUNGS: Clear to auscultation without wheeze, rhonchi, or crepitations. CARDIOVASCULAR: S1 and S2 are heard, regular. Peripheral pulses palpable. ABDOMEN: Soft, nontender, bowel sounds heard. NEUROLOGIC: Cranial nerves 2 through 12 are intact. MUSCULOSKELETAL: Status post left knee surgery, the patient is moving all 4 extremities. SKIN: No rashes or subcutaneous nodules. LYMPHATIC: No cervical lymphadenopathy. PSYCHIATRIC: Normal mood, normal affect. The patient is oriented to person, place, and time. LABORATORY DATA: Mr. Rodriguez's labs and investigations were reviewed. He has normal white count, normocytic anemia with hemoglobin 11.8, normal platelet count. Normal electrolytes and normal creatinine. Calcium is mildly elevated at 10.8. ASSESSMENT AND PLAN: Mr. Rodriguez is a pleasant 63-year-old gentleman, who was seen at [facility] on April 15, 2019. His problem list includes: 1. Hypertension: Mr. Rodriguez has a history of hypertension. However, his blood pressure earlier today was decreased at 99/59. I will hold lisinopril for now. I will continue beta elvin during the postoperative period, but at a decreased dose of 50 mg 2 times a day. We will monitor vital signs and titrate antihypertensives as needed. 2. Dyslipidemia: The patient is currently not on a statin. He will need to follow up with his primary care provider and discuss management of dyslipidemia. 3. History of pulmonary embolism: Apixaban is on hold for the surgery. Resumption of apixaban at the discretion of Orthopedic Surgery Service. 4. Morbid obesity: The patient is being followed by Nutrition Service. Many thanks for allowing me to participate in your patient's care. Please feel free to contact me with any questions or concerns. LEVEL OF RISK: Moderate. LEVEL OF COMPLEXITY: Moderate. CC: William Christine MD Job ID: [id number]
[2019-04-15] MEDS: traMADol HCl 50 MG TAB PO PRN (16:14)
[2019-04-15] MEDS: Fentanyl 100 MCG/2 ML VIAL IV PRN ×2 (17:09→17:44)
[2019-04-15] MEDS: Cyclobenzaprine 10 MG TAB PO SCH (21:06)
[2019-04-16] MEDS: HYDROcodone/Acetaminophen 10/325 mg Tablet PO PRN ×3 (03:55→15:29)
[2019-04-16] MEDS: Ketorolac Tromethamine 30 MG/ML VIAL IVP SCH ×2 (05:02→11:44)
[2019-04-16 05:29] LABS: Hemoglobin 10.8 g/dL (14.0-18.0); Mean Corpuscular HGB CONC 33.4 g/dL (32.0-36.0); Mean Corpuscular Hemoglobin 30.1 pg (27.0-31.0); Mean Corpuscular Volume 90.2 fL (78.0-98.0); Mean Platelet Volume 8.5 fL (7.4-10.4); Platelet Count 130 thou/uL (130-400); RBC Distribution Width 13.1 % (11.5-14.5)
--- NOTE | 2019-04-16 08:56 | CON ---
DATE OF CONSULTATION: ADDENDUM: I would like to make a correction to the consult note dictated on Marianod, . The correction is that patient's primary care provider is Dr. William Christine, not Dr. Dony Sexton. Please send a copy of the report to Dr. Christine' office. Job ID: [id number]
[2019-04-16] MEDS ORDERED: Apixaban 2.5 MG TAB PO SCH (09:00)
[2019-04-16] MEDS: Famotidine 20 MG TAB PO SCH (09:44)
[2019-04-16] MEDS: Vancomycin HCl 1.5 GM in Sodium Chloride 0.9% 250 ML 300 ML IVPB SCH (11:44)
[2019-04-16] MEDS: traMADol HCl 50 MG TAB PO PRN (11:48)
[2019-04-16] MEDS: Sodium Chloride 0.9% 1,000 ML IV SCH (11:56)
--- NOTE | 2019-04-16 13:08 | PDOC.PN ---
- Subjective Encounter Start Date: 04/16/19 Encounter Start Time: 08:25 Subjective: no sob, feels better -: is seen amb with PT - Objective MAR Reviewed: Yes Vital Signs & Weight: Vital Signs (12 hours) Temp Pulse Resp BP BP Pulse Ox 04/16/19 11:18 97.6 F 81 20 163/79 H 97 04/16/19 07:39 97.8 F 71 18 139/83 94 L 04/16/19 04:14 98.0 F 76 20 156/83 H 95 Weight Admit Weight 300 lb Weight 300 lb I&O: 04/15/19 04/16/19 04/17/19 06:59 06:59 06:59 Intake Total 2150 2885 Output Total 2175 3100 Balance -25 -215 Result Diagrams: 04/16/19 04:33 04/07/19 10:08 Phys Exam - Physical Examination HEENT: PERRLA, moist MMs Neck: no JVD, supple Respiratory: no wheezing, no rales Cardiovascular: RRR, no significant murmur Gastrointestinal: soft, non-tender, positive bowel sounds Musculoskeletal: pulses present left knee in dressing Neurological: non-focal, moves all 4 limbs Psychiatric: normal affect, A&O x 3 Dx/Plan (1) Status post total knee replacement, left Code(s): Z96.652 - PRESENCE OF LEFT ARTIFICIAL KNEE JOINT Status: Acute (2) Bipolar disorder Code(s): F31.9 - BIPOLAR DISORDER, UNSPECIFIED Status: Chronic Qualifiers: Active/Remission status: remission status unspecified Qualified Code(s): F31.9 - Bipolar disorder, unspecified (3) COPD (chronic obstructive pulmonary disease) Status: Chronic Qualifiers: COPD type: unspecified COPD Qualified Code(s): J44.9 - Chronic obstructive pulmonary disease, unspecified (4) Hypertension Code(s): I10 - ESSENTIAL (PRIMARY) HYPERTENSION Status: Chronic Qualifiers: (5) Morbid obesity with BMI of 40.0-44.9, adult Code(s): E66.01 - MORBID (SEVERE) OBESITY DUE TO EXCESS CALORIES; Z68.41 - BODY MASS INDEX (BMI) 40.0-44.9, ADULT Status: Chronic (6) Tobacco abuse Code(s): Z72.0 - TOBACCO USE Status: Chronic - Plan hemostable -: is doing well post op -: continue toprol xl, asp bid, zoloft -: pain mgmt per anesthesia, may dc buprenorphine weekly -: dc plan per ortho adv, he will need outpt sleep study * . Review of Systems - Medications/Allergies Allergies/Adverse Reactions: Allergies Allergy/AdvReac Type Severity Reaction Status Date / Time naproxen [From Naprosyn] Allergy Hives Verified 04/07/19 09:37 Medications: Current Medications Acetaminophen (Tylenol) 1,000 mg PO Q6H PRN PRN Reason: BEY/T > 101F/Mild Pain (1-3) Hydrocodone Bitart/Acetaminophen ([place] 10/325) 1 tab PO Q4H PRN PRN Reason: Pain (1-3) Hydrocodone Bitart/Acetaminophen ([place] 10/325) 2 tab PO Q4H PRN PRN Reason: PAIN (4-6) Last Admin: 04/16/19 09:45 Dose: 2 tab Apixaban (Eliquis) 2.5 mg PO DAILY [facility] Last Admin: 04/16/19 10:02 Dose: 2.5 mg Cyclobenzaprine HCl (Flexeril) 10 mg PO HS [facility] Last Admin: 04/15/19 21:06 Dose: 10 mg Famotidine (Pepcid) 20 mg PO DAILY [facility] Last Admin: 04/16/19 09:44 Dose: 20 mg Fentanyl (Sublimaze) 50 mcg IV Q1H PRN PRN Reason: BREAKTHROUGH PAIN Last Admin: 04/15/19 17:44 Dose: 50 mcg Ropivacaine 250 ml/ Device 250 mls @ 0 mls/hr NERVE BLCK INF [facility] Last Admin: 04/15/19 15:12 Dose: 250 mls Sodium Chloride (Normal Saline 0.9%) 1,000 mls @ 100 mls/hr IV .Q10H [facility] Last Admin: 04/16/19 11:56 Dose: Not Given Metoprolol Succinate (Toprol Xl) 50 mg PO DAILY [facility] Last Admin: 04/16/19 09:44 Dose: 50 mg Morphine Sulfate (Morphine) 2 mg SLOW IVP Q2H PRN PRN Reason: MOD BREAKTHRU PAIN Last Admin: 04/15/19 21:06 Dose: 2 mg Morphine Sulfate (Morphine) 4 mg SLOW IVP Q2H PRN PRN Reason: SEVERE BREAKTHRU Pain Non-Formulary Medication (Buprenorphine [Buprenorphine]) 10 mcg PO Q7DAYS [facility] Ondansetron HCl (Zofran) 4 mg IVP Q6H PRN PRN Reason: Nausea/Vomiting Promethazine HCl (Phenergan) 12.5 mg IM Q4H PRN PRN Reason: Nausea Sertraline HCl (Zoloft) 300 mg PO HS [facility] Last Admin: 04/15/19 21:05 Dose: 300 mg Sodium Chloride (Flush - Normal Saline) 10 ml IVF Q12HR [facility] Last Admin: 04/16/19 11:56 Dose: Not Given Sodium Chloride (Flush - Normal Saline) 10 ml IVF PRN PRN PRN Reason: Saline Flush Sodium Chloride (Flush - Normal Saline) 10 ml IVF PRN PRN PRN Reason: Saline Flush Tramadol HCl (Ultram) 50 mg PO Q6H PRN PRN Reason: Mild Pain (1-3) Tramadol HCl (Ultram) 100 mg PO Q6H PRN PRN Reason: Moderate Pain 4-6 Last Admin: 04/16/19 11:48 Dose: 100 mg Zolpidem Tartrate (Ambien) 5 mg PO HSPRN PRN PRN Reason: Insomnia
[2019-04-16 15:53] VITALS: BP 161/92; TEMP 98.7
--- NOTE | 2019-04-17 15:58 | DIS ---
DATE OF ADMISSION: 04/14/2019 DATE OF DISCHARGE: 04/16/2019 DISCHARGE DISPOSITION: To home. PRIMARY DISCHARGE DIAGNOSIS: Status post left total knee replacement. SECONDARY DISCHARGE DIAGNOSES: Chronic obstructive pulmonary disease, hypertension, morbid obesity, tobacco abuse, bipolar disorder. PROCEDURES DONE DURING HOSPITALIZATION: The patient has had left total knee replacement done by Dr. Quinteros on 04/14/2019. H and H 11 and 32, platelet count 130. BUN 17, creatinine 0.8. DISCHARGE MEDICATIONS: 1. Eliquis 5 mg p.o. twice daily. 2. Clonazepam 4 mg p.o. at bedtime. 3. Flexeril 10 mg p.o. at bedtime. 4. Pepcid 20 mg daily. 5. [place] p.r.n. for pain. 6. Lisinopril 20 mg twice daily. 7. Toprol-XL 100 mg twice daily. 8. Sertraline 300 mg p.o. at bedtime. ALLERGIES: TO NAPROSYN. DISCHARGE PLAN: The patient to follow up with Dr. Quinteros as advised and primary care physician in 1 week. BRIEF COURSE DURING HOSPITALIZATION: The patient initially was scheduled for elective left total knee replacement. This was done by Dr. Quinteros on 04/14/2019. Postop, [facility] were consulted for comanagement of medical issues. The patient has remained hemodynamically stable postop. He is worked well with physical therapy and has ambulated more than 250 feet. The patient will likely need outpatient sleep study. He has been cleared for discharge by Dr. Quinteros. He needs follow up with him as advised and primary care physician in 1 week. Job ID: [id number]
[2019-04-21] MEDS ORDERED: BUPRENORPHINE 10 MCG PO SCH ×2 (09:00)
== END 2019-04-16 17:11 | disposition home health service (06) | DRG 470 ==
LOC: SURG A 04-14 11:09 → EDSTATUS 04-14 15:42 → SJJU 04-14 17:06
PROVIDERS: ADMIT Orthopaedic Surgery; ATTEND Orthopaedic Surgery
PROC: 0SRD069 Replacement of Left Knee Joint with Oxidized Zirconium on Polyethylene Synthetic Substitute, Cemented, Open Approach (ICD-10-PCS; principal; 2019-04-14)
DX: M17.12 Unilateral primary osteoarthritis, left knee (principal); Z68.41 Body mass index [BMI] 40.0-44.9, adult; I10 Essential (primary) hypertension; E78.5 Hyperlipidemia, unspecified; F31.9 Bipolar disorder, unspecified; J44.9 Chronic obstructive pulmonary disease, unspecified; E66.01 Morbid (severe) obesity due to excess calories; Z86.711 Personal history of pulmonary embolism; Z88.6 Allergy status to analgesic agent; Z79.899 Other long term (current) drug therapy; Z79.01 Long term (current) use of anticoagulants; Z72.0 Tobacco use
CPT/HCPCS: 36415; 80048; 81015; 85027; 85610; 85730; 86850; 86900; 86901; 87081; C1713; C1776; J0131; J0690; J1170; J1885; J2250; J2270; J2795; J3010; J3370; J7050

== ENCOUNTER 2019-04-22 11:09 | Emergency (ER) | payer OTHER ==
[2019-04-22] MEDS ORDERED: Fentanyl 100 MCG/2 ML VIAL ONE (12:06)
[2019-04-22 12:15] LABS: #Eosinphils 0.1 thou/uL (0.0-0.7); #Lymphocytes 1.7 thou/uL (1.20-3.40); #Monocytes 0.7 thou/uL (0.11-0.59); #Neutrophils 4.9 thou/uL (1.40-6.50); %Basophils 0.4 % (0.0-1.0); %Eosinophils 0.9 % (0.0-10.0); %Monocytes 9.1 % (0.0-10.0); %Neutrophils 66.5 % (42.0-75.0); Hemoglobin 11.5 g/dL (14.0-18.0); Mean Corpuscular HGB CONC 33.1 g/dL (32.0-36.0); Mean Corpuscular Volume 87.8 fL (78.0-98.0); Mean Platelet Volume 7.9 fL (7.4-10.4); Platelet Count 262 thou/uL (130-400); RBC Distribution Width 12.8 % (11.5-14.5); Red Blood Cell (RBC) Count 3.97 mill/uL (4.70-6.10); White Blood Cell (WBC) Count 7.3 thou/uL (4.8-10.8)
--- NOTE | 2019-04-22 12:31 | RAD ---
AP view chest. HISTORY: Elevated blood pressure. AP view chest demonstrates the lungs to be well aerated. No evidence of active intrathoracic disease seen. No evidence of effusions, pneumonia or pneumothorax seen. IMPRESSION: Unremarkable AP view chest.
[2019-04-22 12:42] LABS: ALT (SGPT) 19 U/L (8-55); AST (SGOT) 18 U/L (5-34); Alkaline Phosphatase 74 U/L (40-150); Anion Gap 12 mmol/L (10-20); BUN (Urea Nitrogen) 19 mg/dL (8.4-25.7); Bilirubin, Total 0.6 mg/dL (0.2-1.2); CK (CPK) 61 U/L (30-200); Calc. Creatinine Clearance 0 mL/min (70-130); Carbon Dioxide 26 mmol/L (23-31); Chloride 100 mmol/L (98-107); Estimated GFR-MDRD 85; Globulin 3.4 g/dL (2.4-3.5); Glucose 159 mg/dL (80-115); Potassium 4.2 mmol/L (3.5-5.1); Protein, Total 7.4 g/dL (5.8-8.1); Sodium 134 mmol/L (136-145)
[2019-04-22 12:50] LABS: Calcium 13.5 mg/dL (7.8-10.44)
--- NOTE | 2019-04-22 13:44 | CT ---
CT BRAIN 04/22/19 PROVIDED CLINICAL HISTORY: Headache. FINDINGS: Comparison 12/31/16. The ventricular system appears normal in size and morphology. There is no evidence for intracranial h emorrhage or mass effect. The extracranial soft tissue and osseous structures demonstrate an unremark able CT appearance. IMPRESSION: No evidence for intracranial hemorrhage or mass effect. POS: [facility]
--- NOTE | 2019-04-26 16:41 | EKG ---
Test Reason : Blood Pressure : / mmHG Vent. Rate : 075 BPM Atrial Rate : 075 BPM P-R Int : 222 ms QRS Dur : 096 ms QT Int : 368 ms P-R-T Axes : 019 027 053 degrees QTc Int : 410 ms Sinus rhythm with 1st degree A-V block Otherwise normal ECG Confirmed by HARVEY MUNOZ, HOLLY (12), non linear editor ALIX HUIZAR ([id number]) on 04/26/2019 4:41:26 PM Referred By: Confirmed By:HOLLY GABRIEL MD
== END 2019-04-22 13:27 | disposition home or self-care (01) ==
LOC: ERS 11:09
DX: I10 Essential (primary) hypertension (principal); E83.52 Hypercalcemia; Z86.711 Personal history of pulmonary embolism; F31.9 Bipolar disorder, unspecified; F17.210 Nicotine dependence, cigarettes, uncomplicated; Z79.899 Other long term (current) drug therapy; Z79.01 Long term (current) use of anticoagulants
CPT/HCPCS: 70450; 71045; 80053; 82550; 83880; 84484; 85025; 93005; 96374; J3010